=== PATIENT | male | born 2000 | race Caucasian/White ===

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

== ENCOUNTER → 2018-11-15 | Outpatient (CLI) | payer BC ==
[2018-11-15 11:44] LABS: SITE Left Upper Forearm
[2018-11-17 09:17] LABS: FORTY EIGHT HOUR READING 0 mm (0-9)
[2018-11-18 12:48] LABS: SEVENTY TWO HOUR READING 0 mm (0-9)
== END | disposition home or self-care (01) ==
LOC: LAB 11:01
DX: Z01.84 Encounter for antibody response examination (principal)
CPT/HCPCS: 86580